=== PATIENT | male | born 1980 ===

== ENCOUNTER 2016-11-27 22:13 | Emergency (ER) | payer OTHER ==
[2016-11-27 22:19] VITALS: RESP 17
--- NOTE | 2016-11-27 23:26 | C.PDOC ---
History Of Present Illness A 36 y/o male c/o palpitations after he took cocaine and percocet today. Pt denies chest pain, lightheadedness, dizziness, diaphoresis, fever, chills, SOB, or any other complaints. Time Seen by Provider: 11/27/16 23:23 Chief Complaint (Nursing): Palpitations History Per: Patient History/Exam Limitations: no limitations Onset/Duration Of Symptoms: Hrs Current Symptoms Are (Timing): Still Present Severity: Mild Recent travel outside of the [place]: No Additional History Per: Patient Past Medical History Reviewed: Historical Data, Nursing Documentation, Vital Signs Vital Signs: Last Vital Signs Temp 98.8 F 11/27/16 22:19 Pulse 97 H 11/28/16 00:51 Resp 17 11/27/16 22:19 BP 102/56 L 11/28/16 00:51 Pulse Ox 100 11/27/16 23:27 Family History: States: Unknown Family Hx - Social History Hx Alcohol Use: Yes Hx Substance Use: No (1st time used in years) - Immunization History Hx Tetanus Toxoid Vaccination: No Hx Influenza Vaccination: No Review Of Systems Except As Marked, All Systems Reviewed And Found Negative. Constitutional: Negative for: Fever, Chills, Sweats Cardiovascular: Positive for: Palpitations. Negative for: Chest Pain, Light Headedness Respiratory: Negative for: Shortness of Breath Neurological: Negative for: Dizziness Physical Exam - Physical Exam Appears: Non-toxic, No Acute Distress Skin: Warm, Dry Head: Atraumatic, Normacephalic Eye(s): bilateral: Normal Inspection Chest: Symmetrical Cardiovascular: Rhythm Regular (Slightly tachycardic), No Murmur Respiratory: Normal Breath Sounds, No Accessory Muscle Use, No Rales, No Rhonchi , No Wheezing Neurological/Psych: Oriented x3, Normal Speech, Normal Cognition, Other (No focal deficit) Gait: Steady ED Course And Treatment - Laboratory Results Result Diagrams: 11/28/16 02:17 11/27/16 23:39 O2 Sat by Pulse Oximetry: 100 (RA) Pulse Ox Interpretation: Normal Medical Decision Making Medical Decision Making: Impression: 36 y/o male c/o palpitations that began today after taking cocaine and percocet Plans: EKG Blood labs IV fluids Reassess Disposition Counseled Patient/Family Regarding: Diagnosis - Disposition Referrals: Clinic,Med Surg [Primary Care Provider] - [facility] [Outside] Disposition: HOME/ ROUTINE Disposition Time: 02:29 Condition: STABLE Instructions: Narcotic Abuse (ED), Polysubstance Abuse (ED), Leukocytosis (ED) , Palpitations (ED) - POA Present On Arrival: None - Clinical Impression Clinical Impression: Palpitations, Polysubstance abuse, Leukocytosis (leucocytosis) - Scribe Statement The provider has reviewed the documentation as recorded by the Scribgriselda younger All medical record entries made by the Kylahibgriselda were at my direction and personally dictated by me. I have reviewed the chart and agree that the record accurately reflects my personal performance of the history, physical exam, medical decision making, and the department course for this patient. I have also personally directed, reviewed, and agree with the discharge instructions and disposition.
[2016-11-27 23:49] LABS: BASO % 0.1 % (0.0-2.0); HEMATOCRIT 43.9 % (35.0-51.0); LYMPH # 0.7 K/uL (1.0-4.3); LYMPH % 3.4 % (20.0-40.0); MEAN CELL VOLUME 90.7 fL (80.0-94.0); MEAN CORPUSCULAR HGB CONC 33.1 g/dL (33.0-37.0); MEAN PLATELET VOLUME 7.4 fL (7.2-11.7); MONO # 1.9 K/uL (0.0-0.8); MONO % 9.1 % (0.0-10.0); PLATELET COUNT 295 K/uL (130-400); RED CELL DISTRIBUTION WIDTH 13.4 % (11.5-14.5); WHITE BLOOD COUNT 21.2 K/uL (4.8-10.8)
[2016-11-28 00:03] LABS: CHLORIDE 106 mmol/L (98-107)
[2016-11-28 00:04] LABS: SODIUM 142 mmol/L (132-148)
[2016-11-28 00:06] LABS: ALB/GLOB RATIO 1.4 (1.0-2.1); ALKALINE PHOSPHATASE 84 U/L (38-126); AST/SGOT 38 U/L (17-59); BILIRUBIN,TOTAL 0.8 mg/dL (0.2-1.3); BLOOD UREA NITROGEN 17 mg/dL (9-20); CARBON DIOXIDE 20 mmol/L (22-30); GFR AFRICAN-AMERICAN > 60; TOTAL PROTEIN 7.5 g/dL (6.3-8.3)
[2016-11-28 00:07] LABS: ALCOHOL SERUM < 10 mg/dl (0-10); ALT/SGPT 36 U/L (21-72); GLUCOSE,RANDOM 120 mg/dL (75-110)
[2016-11-28] MEDS ORDERED: Sodium Chloride 0.9% 1,000 ML IV ONE ×2 (00:28→00:29)
[2016-11-28] MEDS ORDERED: Sodium Chloride 0.9% 1,000 ML ONE (00:46)
[2016-11-28 02:20] LABS: BASO # 0.1 K/uL (0.0-0.2); BASO % 0.5 % (0.0-2.0); EOS % 0.1 % (0.0-4.0); HEMATOCRIT 40.6 % (35.0-51.0); LYMPH # 1.7 K/uL (1.0-4.3); LYMPH % 8.8 % (20.0-40.0); MEAN CORPUSCULAR HEMOGLOBIN 29.8 pg (27.0-31.0); MEAN CORPUSCULAR HGB CONC 33.1 g/dL (33.0-37.0); MEAN PLATELET VOLUME 7.2 fL (7.2-11.7); MONO # 1.8 K/uL (0.0-0.8); MONO % 9.7 % (0.0-10.0); RED CELL DISTRIBUTION WIDTH 13.4 % (11.5-14.5)
[2016-11-28 02:27] LABS: CHLORIDE 103 mmol/L (98-107); SODIUM 137 mmol/L (132-148)
[2016-11-28 02:28] LABS: POTASSIUM 3.7 mmol/L (3.6-5.2)
[2016-11-28 02:30] LABS: GFR AFRICAN-AMERICAN > 60
[2016-11-28 02:31] LABS: BLOOD UREA NITROGEN 14 mg/dL (9-20); CARBON DIOXIDE 23 mmol/L (22-30); GLUCOSE,RANDOM 100 mg/dL (75-110)
[2016-11-28 02:47] VITALS: BP 111/70; PULSE 95; TEMP 97.8; O2SAT 95
[2016-11-28 03:49] LABS: NEUTROPHIL 82 % (50-75); TOTAL CELLS COUNTED 100
--- NOTE | 2016-11-30 08:36 | CARD ---
APPROVED REPORT EKG Measurement Heart [id number] <Conclusion> Sinus tachycardia Otherwise normal ECG
== END 2016-11-28 02:48 | disposition home or self-care (01) ==
LOC: SUPCPDRO 22:13 → C.ER 22:13
DX: F19.10 Other psychoactive substance abuse, uncomplicated (principal); R00.2 Palpitations; D72.829 Elevated white blood cell count, unspecified
CPT/HCPCS: 80048; 80053; 80320; 80324; 80345; 80346; 80349; 80353; 80358; 80361; 83992; 84484; 85025; 93005; 96360; 96361; 99285; J7040